=== PATIENT | female | born 1955 | race Caucasian/White ===

== ENCOUNTER 2019-07-05 09:16 | Observation (INO) ==
--- NOTE | 2019-07-05 10:17 | Emergency Department Note ---
Disposition Clinical Impression: Hyperglycemia, Prolonged QT interval syndrome, Dizziness, Vertigo Disposition: Admitted As Inpatient Condition: Fair Referrals: Chrissy Salas MD [Primary Care Provider] - Forms: ED Satisfaction Letter Time of Disposition: 12:43 Dizziness HPI - General Chief Complaint: ED Dizziness Stated Complaint: Dizziness,Fall,Back injury Time Seen by Provider: 07/05/19 09:27 Source: patient Limitations: no limitations - History of Present Illness HPI Narrative: Ms. Howard is a 64 y/o female with a past medical history of having hypertension who presented to the emergency room with 2 days of vertigo. Patient states that her dizziness began yesterday morning when she stood up in the morning. She had intermittent episodes unsure how long it is lasting for. She states that she has been stumbling and has fallen to the left. Patient states that she is not had any recent medication changes. She is not previously had symptoms like this before. Patient denies episodes of confusion, numbness and tingling into her extremities. She denies slurred speech. No previous history of having a stroke. She denies hearing loss, tenderness, recent illness, syncope, weakness, dysuria, and chest pain. - Related Data Home Medications Medication Instructions Recorded Confirmed Acetaminophen [Tylenol 8 Hour] 650 mg PO Q8H PRN 05/29/18 05/29/18 Aspirin [Lo-Dose Aspirin EC] 81 mg PO DAILY 05/29/18 05/29/18 Lisinopril [Zestril] 20 mg PO HS 05/29/18 05/29/18 Metoprolol Succinate [Toprol Xl] 50 mg PO HS 05/29/18 05/29/18 Naproxen [Naprosyn] 500 mg PO BID 05/29/18 05/29/18 Omeprazole [PriLOSEC] 40 mg PO HS 05/29/18 05/29/18 Potassium Gluconate [Potassium] 99 mg PO DAILY 05/29/18 05/29/18 Tizanidine HCl [Zanaflex] 2 mg PO HS 05/29/18 05/29/18 Previous Rx's Medication Instructions Recorded OxyCODONE/APAP 10/325 [Percocet 1 each PO Q6HR PRN 5 Days #18 05/29/18 10/325 MG] tablet Allergies Allergy/AdvReac Type Severity Reaction Status Date / Time menthol AdvReac Unknown Nausea Verified 05/29/18 08:04 meperidine [From Demerol] AdvReac Unknown Hypotension Verified 05/29/18 08:04 All systems ED: reviewed and negative except as stated. Review of Systems: As Per HPI Past Medical History - Past Medical History Source: patient Medical history: Reports: hypertension Surgical history: Reports: other Psychiatric history: Reports: no psych history - Social History Smoking Status: Former smoker Smokeless Tobacco Status: No Alcohol use: Reports: none Drug use: Reports: none Physical Exam Constitutional: Alert, in no acute distress HEENT: Normocephalic, atraumatic, TM normal, mucous membranes moist Heart: Normal, regular rate and rhythm, no murmurs Lungs: Clear to auscultation, no wheezes, rales, or rhonchi Abdomen: Soft, nondistended, nontender, bowel sounds present and normal, no guarding or rigidity. Extremities: No edema, No clubbing, radial pulse +2/4, capillary refill <2sec. Skin: Skin warm and dry, no lesions, no rashes, no jaundice Neurologic: Cranial nerves II through XII intact, strength 5/5 in all extremities, negative Romberg sign, no lower extremity drift, [id number] te st normal, See Hallpike maneuver positive bilaterally Psych: Cooperative with exam, good eye contact, cognitive function intact, speech clear, thought process logical, and goal directed - General Limitations: no limitations General appearance: alert, in no apparent distress Course Course Narrative: Due to patients advance age. risk factor of HTN, and falling to the left will obtain CT of head to rule out stroke. Patient is outside the window for TPA as is been over 24 hours and symptoms started. Patient has a negative Romberg sign, normal finger to nose test, and is not complaining of numbness or tingling in extremities. Not likely due to Meniere's disease as patient has no reported hearing loss. Clinical presentation most likely benign paroxysmal positional vertigo as she describes it as the room is spinning, episodic, witho ut hearing loss. EKG showed sinus rhythm with prolonged QTC. Troponin normal, CBC within normal limits, BMP did show elevated glucose. Patient most likely has diabetes based off of glucose. - Reevaluation(s) Reevaluation #1: CT head is negative for acute processes. Discussed case with hospitalist Dr. [place] for admission for dizziness with concerns for possible stroke and need for MRI, carotid ultrasound, and echo. Time: 12:40 Vital Signs Temperature 97.7 F 07/05/19 09:19 Pulse Rate 65 07/05/19 09:19 Respiratory Rate 16 07/05/19 09:19 Blood Pressure 154/74 07/05/19 09:19 O2 Sat by Pulse Oximetry 97 07/05/19 09:19 Temperature 97.7 F 07/05/19 09:19 Pulse Rate 53 07/05/19 12:56 Respiratory Rate 16 07/05/19 12:56 Blood Pressure 141/74 07/05/19 12:56 O2 Sat by Pulse Oximetry 98 07/05/19 12:56 Oxygen Delivery Oxygen Delivery Room Air Dizziness - Medical Records Medical records reviewed: Yes I reviewed the patient's medical records. - Lab Data Lab results reviewed: Yes I reviewed the patient's lab results. Result diagrams: 07/05/19 09:31 07/05/19 09:31 Lab Results 07/05/19 07/05/19 07/05/19 Range/Units 09:31 09:31 09:33 WBC 7.2 (4.3-11.1) K/mcL RBC 4.32 (3.82-4.97) M/mcL Hgb 13.9 (11.5-15.4) g/dL Hct 40.3 (35.3-44.9) % MCV 93.3 (83.0-100.0) fL MCH 32.2 (28.0-33.3) pg MCHC 34.5 (31.6-35.5) g/dL RDW 11.4 L (11.5-14.5) % Plt Count 315 (140-400) K/mcL MPV 11.0 (9.4-12.4) fL Sodium 139 (136-145) mEq/L Potassium 3.6 (3.5-5.1) mEq/L Chloride 100 (98-107) mEq/L Carbon Dioxide 26 (23-29) mEq/L BUN 17 (8-23) mg/dL Creatinine 0.89 (0.60-1.20) mg/dL Est GFR ( Amer) > 60 (> 60) Est GFR (Non-Af Amer) > 60 (> 60) BUN/Creatinine Ratio 19 (6-26) Glucose 272 H (70-105) mg/dL POC Glucose 285 H (70-99) mg/dL Calculated Osmolality 299 (280-300) Calcium 9.2 (8.6-10.3) mg/dL Troponin I < 0.03 (< 0.04) ng/mL Urine Color (Yellow) Urine Clarity (Clear) Urine pH (5.0-8.0) pH Units Ur Specific [place] (1.010-1.025) Urine Protein (Neg-Trace) mg/dL Urine Glucose (UA) (Normal) mg/dL Urine Ketones (Negative) mg/dL Urine Blood (Negative) Urine Nitrite (Negative) Urine Bilirubin (Negative) Urine Urobilinogen (Normal) mg/dL Ur Leukocyte Esterase (Negative) Ur Culture Indicated? (NO) 07/05/19 Range/Units 10:32 WBC (4.3-11.1) K/mcL RBC (3.82-4.97) M/mcL Hgb (11.5-15.4) g/dL Hct (35.3-44.9) % MCV (83.0-100.0) fL MCH (28.0-33.3) pg MCHC (31.6-35.5) g/dL RDW (11.5-14.5) % Plt Count (140-400) K/mcL MPV (9.4-12.4) fL Sodium (136-145) mEq/L Potassium (3.5-5.1) mEq/L Chloride (98-107) mEq/L Carbon Dioxide (23-29) mEq/L BUN (8-23) mg/dL Creatinine (0.60-1.20) mg/dL Est GFR ( Amer) (> 60) Est GFR (Non-Af Amer) (> 60) BUN/Creatinine Ratio (6-26) Glucose (70-105) mg/dL POC Glucose (70-99) mg/dL Calculated Osmolality (280-300) Calcium (8.6-10.3) mg/dL Troponin I (< 0.04) ng/mL Urine Color Yellow (Yellow) Urine Clarity Clear (Clear) Urine pH 5.5 (5.0-8.0) pH Units Ur Specific [place] 1.028 H (1.010-1.025) Urine Protein Negative (Neg-Trace) mg/dL Urine Glucose (UA) >=1000 H (Normal) mg/dL Urine Ketones Negative (Negative) mg/dL Urine Blood Negative (Negative) Urine Nitrite Negative (Negative) Urine Bilirubin Negative (Negative) Urine Urobilinogen Normal (Normal) mg/dL Ur Leukocyte Esterase Negative (Negative) Ur Culture Indicated? NO (NO) - Radiology Data Radiology results reviewed: Yes I reviewed the patient's radiology results. - EKG Data EKG attestation: Yes I reviewed and interpreted this EKG. EKG shows normal: sinus rhythm Rate: normal Rhythm: NSR [place]/QRS: normal QTc: prolonged NIH Stroke Scale - Level of Consciousness LOC: Alert - LOC Questions LOC Questions: Answers both correctly - LOC Commands LOC Commands: Performs both correctly - Best Gaze Best Gaze: Normal - Visual Visual: No visual loss - Facial Palsy Facial Palsy: Normal - Motor Arms Motor Arm-Left: No drift for 10 seconds Motor Arm-Right: No drift for 10 seconds - Motor Legs Motor Leg-Left: No drift for 5 seconds Motor Leg-Right: No drift for 5 seconds - Limb Ataxia Limb Ataxia: Normal, No Ataxia - Sensory Sensory: Normal - Best Language Best Language: No aphasia - Dysarthria Dysarthria: Normal - Extinction and Inattention Extinction and Inattention: Normal - NIHSS Total Score NIHSS Total Score: 0
[2019-07-05 10:37] LABS: Hematocrit 40.3 % (35.3-44.9); Hemoglobin 13.9 g/dL (11.5-15.4); Mean Corpuscular HGB Conc 34.5 g/dL (31.6-35.5); Mean Corpuscular Hemoglobin 32.2 pg (28.0-33.3); Mean Corpuscular Volume 93.3 fL (83.0-100.0); Platelet Count 315 K/mcL (140-400); Red Blood Count 4.32 M/mcL (3.82-4.97); Red Cell Distribution Width 11.4 % (11.5-14.5); White Blood Count 7.2 K/mcL (4.3-11.1)
--- NOTE | 2019-07-05 10:37 | Emergency Department Note ---
Disposition Clinical Impression: Hyperglycemia, Prolonged QT interval syndrome, Dizziness, Vertigo Disposition: Admitted As Inpatient Condition: Fair Time of Disposition: 16:03 General Adult HPI - General Chief complaint: ED Dizziness Stated complaint: Dizziness,Fall,Back injury Time Seen by Provider: 07/05/19 09:27 Source: patient Limitations: no limitations - History of Present Illness Pain Scale: 6 - Related Data Home Medications Medication Instructions Recorded Confirmed Acetaminophen [Tylenol 8 Hour] 650 mg PO Q8H PRN 05/29/18 05/29/18 Aspirin [Lo-Dose Aspirin EC] 81 mg PO DAILY 05/29/18 05/29/18 Lisinopril [Zestril] 20 mg PO HS 05/29/18 05/29/18 Metoprolol Succinate [Toprol Xl] 50 mg PO HS 05/29/18 05/29/18 Naproxen [Naprosyn] 500 mg PO BID 05/29/18 05/29/18 Omeprazole [PriLOSEC] 40 mg PO HS 05/29/18 07/05/19 Potassium Gluconate [Potassium] 99 mg PO DAILY 05/29/18 05/29/18 Tizanidine HCl [Zanaflex] 2 mg PO HS 05/29/18 07/05/19 Previous Rx's Medication Instructions Recorded OxyCODONE/APAP 10/325 [Percocet 1 each PO Q6HR PRN 5 Days #18 05/29/18 10/325 MG] tablet Allergies Allergy/AdvReac Type Severity Reaction Status Date / Time menthol AdvReac Unknown Nausea Verified 05/29/18 08:04 meperidine [From Demerol] AdvReac Unknown Hypotension Verified 05/29/18 08:04 Past Medical History - Past Medical History Medical history: Reports: hypertension Surgical history: Reports: other Psychiatric history: Reports: no psych history - Social History Smoking Status: Former smoker Smokeless Tobacco Status: No Alcohol use: Reports: none Drug use: Reports: none Physical Exam - General Limitations: no limitations General appearance: alert, in no apparent distress Course Vital Signs Temperature 97.7 F 07/05/19 09:19 Pulse Rate 65 07/05/19 09:19 Respiratory Rate 16 07/05/19 09:19 Blood Pressure 154/74 07/05/19 09:19 O2 Sat by Pulse Oximetry 97 07/05/19 09:19 Temperature 97.8 F 07/05/19 15:48 Pulse Rate 68 07/05/19 15:48 Respiratory Rate 18 07/05/19 15:48 Blood Pressure 96/63 07/05/19 15:48 O2 Sat by Pulse Oximetry 95 07/05/19 15:48 Oxygen Delivery Oxygen Delivery Room Air Medical Decision Making - Lab Data Result diagrams: 07/05/19 09:31 07/05/19 09:31 Lab Results 07/05/19 07/05/19 07/05/19 Range/Units 09:31 09:31 09:33 WBC 7.2 (4.3-11.1) K/mcL RBC 4.32 (3.82-4.97) M/mcL Hgb 13.9 (11.5-15.4) g/dL Hct 40.3 (35.3-44.9) % MCV 93.3 (83.0-100.0) fL MCH 32.2 (28.0-33.3) pg MCHC 34.5 (31.6-35.5) g/dL RDW 11.4 L (11.5-14.5) % Plt Count 315 (140-400) K/mcL MPV 11.0 (9.4-12.4) fL Sodium 139 (136-145) mEq/L Potassium 3.6 (3.5-5.1) mEq/L Chloride 100 (98-107) mEq/L Carbon Dioxide 26 (23-29) mEq/L BUN 17 (8-23) mg/dL Creatinine 0.89 (0.60-1.20) mg/dL Est GFR ( Amer) > 60 (> 60) Est GFR (Non-Af Amer) > 60 (> 60) BUN/Creatinine Ratio 19 (6-26) Glucose 272 H (70-105) mg/dL POC Glucose 285 H (70-99) mg/dL Calculated Osmolality 299 (280-300) Calcium 9.2 (8.6-10.3) mg/dL Troponin I < 0.03 (< 0.04) ng/mL Urine Color (Yellow) Urine Clarity (Clear) Urine pH (5.0-8.0) pH Units Ur Specific [place] (1.010-1.025) Urine Protein (Neg-Trace) mg/dL Urine Glucose (UA) (Normal) mg/dL Urine Ketones (Negative) mg/dL Urine Blood (Negative) Urine Nitrite (Negative) Urine Bilirubin (Negative) Urine Urobilinogen (Normal) mg/dL Ur Leukocyte Esterase (Negative) Ur Culture Indicated? (NO) 07/05/19 Range/Units 10:32 WBC (4.3-11.1) K/mcL RBC (3.82-4.97) M/mcL Hgb (11.5-15.4) g/dL Hct (35.3-44.9) % MCV (83.0-100.0) fL MCH (28.0-33.3) pg MCHC (31.6-35.5) g/dL RDW (11.5-14.5) % Plt Count (140-400) K/mcL MPV (9.4-12.4) fL Sodium (136-145) mEq/L Potassium (3.5-5.1) mEq/L Chloride (98-107) mEq/L Carbon Dioxide (23-29) mEq/L BUN (8-23) mg/dL Creatinine (0.60-1.20) mg/dL Est GFR ( Amer) (> 60) Est GFR (Non-Af Amer) (> 60) BUN/Creatinine Ratio (6-26) Glucose (70-105) mg/dL POC Glucose (70-99) mg/dL Calculated Osmolality (280-300) Calcium (8.6-10.3) mg/dL Troponin I (< 0.04) ng/mL Urine Color Yellow (Yellow) Urine Clarity Clear (Clear) Urine pH 5.5 (5.0-8.0) pH Units Ur Specific [place] 1.028 H (1.010-1.025) Urine Protein Negative (Neg-Trace) mg/dL Urine Glucose (UA) >=1000 H (Normal) mg/dL Urine Ketones Negative (Negative) mg/dL Urine Blood Negative (Negative) Urine Nitrite Negative (Negative) Urine Bilirubin Negative (Negative) Urine Urobilinogen Normal (Normal) mg/dL Ur Leukocyte Esterase Negative (Negative) Ur Culture Indicated? NO (NO) Attestation Statement - Attestation Attestation: I saw and evaluated the patient and and reviewed the resident's note/PA note/PARAFFIN PLANT SWEATER OPERATOR note, and I agree with the findings and plan. I personally supervised and was present for the guzmán/critical portions of any procedures. The medical decision- making was reviewed with the FORESTRY TECHNICIAN/PA/Advanced Practice Nurse/Resident Physician. I agree with the documented findings, disposition and treatment plan as described except to the extent set forth below. Presents with vertigo which started yesterday when she turned her head while getting out of bed and has been intermittent since that time however she also does have a sensation that she is falling to her left when she is trying to walk and does have a fuzzy feeling in her head as well as some occipital pain which began gradually and she is unsure of the exact onset. She denies any numbness or weakness of the extremities, slurred speech, facial droop, confusion. Patient will have initial evaluation or possible CVA with the feeling that she is falling to her left with the consideration of left-sided weakness however her neuro exam is normal with normal finger to nose and no arm or leg drift. Most likely diagnosis is BPPV but based on her age and her falling to the left history further evaluation for possible CVA or mass will be done 1037 I did review the EKG showing normal sinus rhythm with a rate of 65 and nonspecific T-wave change. There is a prolonged corrected QT which is 537 ms 1042 The patient now has a new diagnosis of undiagnosed diabetes and she also has hypertension and based on her age and the fact that she is falling to the left with the vertigo she will be admitted for further evaluation of possible CVA 1254 Patient is not a thrombolytic candidate due to prolonged duration of symptoms 1302
[2019-07-05 10:46] LABS: Bilirubin,Urine Negative (Negative); Blood,Urine Negative (Negative); Clarity,Urine Clear (Clear); Color,Urine Yellow (Yellow); Glucose,Urine (UA) >=1000 mg/dL (Normal); Ketones,Urine Negative (Negative); Leukocyte Esterase,Urine Negative (Negative); Nitrite,Urine Negative (Negative); PH,Urine 5.5 pH Units (5.0-8.0); Protein,Urine Negative (Neg-Trace); Specific Gravity,Urine 1.028 (1.010-1.025); Urobilinogen,Urine Normal (Normal)
[2019-07-05 10:50] LABS: BUN/Creatinine Ratio 19 (6-26); Blood Urea Nitrogen 17 mg/dL (8-23); Calcium 9.2 mg/dL (8.6-10.3); Carbon Dioxide 26 mEq/L (23-29); Chloride 100 mEq/L (98-107); Glucose 272 mg/dL (70-105); Osmolality,Calculated 299 (280-300); Potassium 3.6 mEq/L (3.5-5.1); Sodium 139 mEq/L (136-145); Troponin I < 0.03 ng/mL (< 0.04); eGFR For African Americans > 60 (> 60); eGFR For Non-African Americans > 60 (> 60)
[2019-07-05] MEDS ORDERED: Naloxone 0.4 MG/ML INJ IVP PRN (12:53)
--- NOTE | 2019-07-05 12:54 | Internal Med History&Physical ---
Date of Encounter: 07/05/19 Time of Encounter: 12:57 Internal Medicine - H&P: HPI History of present illness: Ms. Howard is a 64 year old female with history of hypertension presents for acute onset of dizziness with nausea. She is otherwise a good state of health and very active, usually doing exercise classes and staying active. In the past few days she has been having dizziness episodes even at rest. She became concerned this morning when she woke up with significant dizziness and stumbl ing. She was stumbling to the left side only. She denies any current focal weakness, loss of balance, headache, neck stiffness, blurry vision, vomiting, fevers. No recent trauma or episodes like this in the past. In the ED she had BMP and CBC that were unremarkable, troponin negative, EKG unremarkable. Her glucose was elevated in 270-280s. Past Med Surg Social Fam HX - Past Medical History Medical history: hypertension Additional medical history: rectal bleeding, dairrhea, colonoscopy, bladder vasquez rgery, partial hysterectomy, chronic back pain Psychiatric history: no psych history - Past Surgical History Surgical History: other Additional surgical history: partial hysterectomy, colonoscopy, bladder surgery, dilation and currettage - Social History Smoking Status: Former smoker Smokeless Tobacco Status: No Alcohol use: none Drug use: none Internal Medicine - H&P: Meds Acetaminophen [Tylenol 8 Hour] 650 mg PO Q8H PRN 05/29/18 [History] Aspirin [Lo-Dose Aspirin EC] 81 mg PO DAILY 05/29/18 [History] Lisinopril [Zestril] 20 mg PO HS 05/29/18 [History] Metoprolol Succinate [Toprol Xl] 50 mg PO HS 05/29/18 [History] Naproxen [Naprosyn] 500 mg PO BID 05/29/18 [History] Omeprazole [PriLOSEC] 40 mg PO HS 05/29/18 [History] OxyCODONE/APAP 10/325 [Percocet 10/325 MG] 1 each PO Q6HR PRN 5 Days #18 tablet 05/29/18 [Rx] Potassium Gluconate [Potassium] 99 mg PO DAILY 05/29/18 [History] Tizanidine HCl [Zanaflex] 2 mg PO HS 05/29/18 [History] Allergy/AdvReac Type Severity Reaction Status Date / Time menthol AdvReac Unknown Nausea Verified 05/29/18 08:04 meperidine [From Demerol] AdvReac Unknown Hypotension Verified 05/29/18 08:04 All Systems PM: A 10-system review of systems was performed and is negative for pertinent findings except as documented above in the HPI. - Constitutional Constitutional: no chills, no fever(s), no night sweats, no weakness - EENT Eyes: no change in vision, no diplopia, no discharge, no loss of vision, no pain, no photophobia Ears: no ear discharge, no ear pain, no tinnitus Nose, mouth and throat: no dysphagia, no nasal discharge, no neck pain, no sore throat - Cardiovascular Cardiovascular ROS IM: no chest pain, no diaphoresis, no dyspnea, no lightheadedness, no palpitations, no syncope - Respiratory Respiratory: no cough, no dyspnea, no wheezing, no excessive phlegm production - Gastrointestinal Gastrointestinal: no abdominal pain, no diarrhea, no hematemesis, no hematochezia, no melena, no nausea, no vomiting - Genitourinary Genitourinary: no change in urinary stream, no dysuria, no flank pain, no hematuria - Musculoskeletal Musculoskeletal ROS IM: no arthralgias, no atrophy, no muscle weakness, no neck pain, no numbness, no tingling - Integumentary Integumentary IM: no rash, no unusual bruising - Neurological Neurological ROS: disequilibrium, dizziness, vertigo, no abnormal hearing, no abnormal movements, no abnormal speech, no behavioral changes, no burning sensations, no confusion, no convulsions, no focal weakness, no numbness, no paresthesias, no tingling, no tremor(s) - Psychiatric Psychiatric: no anxiety, no auditory hallucinations, no behavioral changes - Endocrine Endocrine IM: no cold intolerance, no deeping of the voice - Hematologic/Lymphatic Hematologic/Lymphatic: no easy bruising - Constitutional Vitals: Temp Pulse Resp BP Pulse Ox 97.7 F 56 17 113/65 98 07/05/19 09:19 07/05/19 11:17 07/05/19 11:17 07/05/19 11:17 07/05/19 11:17 General appearance: Present: A&O X 3, no acute distress Exam: . - Head Head exam: Present: atraumatic, normocephalic - Eye Eye exam: Present: PERRL, conjuntiva pink, sclera anicteric Pupils: Present: PERRL - Neck Neck exam general surgery: Present: supple, trachea midline. Absent: lymphadenopathy - Respiratory Respiratory exam: Present: CTAB. Absent: accessory muscle use, rales, rhonchi, wheezes - Cardiovascular Cardiovascular exam: Present: RRR, +S1, +S2. Absent: diastolic murmur, gallop, rubs, systolic murmur - GI/Abdominal GI/Abdominal exam: Present: normal bowel sounds, soft, no peritoneal signs. Absent: distended, tenderness - Extremities Exam Extremities exam: Present: warm, radial pulses palpable and symmetrical. Absent: calf tenderness, cyanotic, pedal edema - Neurological Exam Neurological exam: Present: alert, CN II-XII intact, normal gait (examined with assistence due to dizziness), oriented X3, reflexes normal, no focal deficits, strengths equal and symetr throughout. Absent: altered, motor sensory deficit, pronater drift, facial droop, speech deficit - Skin Skin exam: Present: dry, intact Internal Med - H&P Results - Labs CBC & Chem 7: 07/05/19 09:31 07/05/19 09:31 Labs: Short CBC 07/05/19 Range/Units 09:31 WBC 7.2 (4.3-11.1) K/mcL Hgb 13.9 (11.5-15.4) g/dL Hct 40.3 (35.3-44.9) % Plt Count 315 (140-400) K/mcL BMP 07/05/19 09:31 Sodium 139 Potassium 3.6 Chloride 100 Carbon Dioxide 26 BUN 17 Creatinine 0.89 Glucose 272 H Calcium 9.2 Cardiac Enzymes 07/05/19 Range/Units 09:31 Troponin I < 0.03 (< 0.04) ng/mL Urine 07/05/19 Range/Units 10:32 Urine Color Yellow (Yellow) Urine Clarity Clear (Clear) Urine pH 5.5 (5.0-8.0) pH Units Ur Specific [place] 1.028 H (1.010-1.025) Urine Protein Negative (Neg-Trace) mg/dL Urine Glucose (UA) >=1000 H (Normal) mg/dL - Impressions ITS Impressions Head CT 07/05/19 10:24 IMPRESSION: No acute intracranial abnormality. D/ / Andrea Bhatia MD / Andrea Bhatia MD Interpreting Provider: Andrea Bhatia MD - Assessment and Plan (1) Dizziness Current Visit: Yes Status: Acute Assessment and plan: Most likely vertigo but concerning when patient is specifically stumbling to left side. She was outside of tpa window to have any stroke alert called. CT head was negative. She had hyperglycemia otherwise negative findings on labs. Neuro exam was normal. Will do CVA workup. - Echocardiogram - Carotid duplex - MRI head - Lipid panel. (2) Hypertension Current Visit: Yes Status: Acute Assessment and plan: Resume home medications. Qualifiers: Hypertension type: essential hypertension Qualified Code(s): I10 - Essential (primary) hypertension (3) Hyperglycemia Current Visit: Yes Status: Acute Assessment and plan: Likely has undiagnosed diabetes. Check A1C in AM. (4) Vertigo Current Visit: Yes Status: Acute Assessment and plan: Meclizine prn (5) DVT prophylaxis Current Visit: Yes Status: Acute Assessment and plan: Heparin SQ - Time Spent With Patient Total time spent is greater than 50% in coordination of care (as documented) at patient's floor/unit and/or counseling patient:
[2019-07-05] MEDS ORDERED: Ringers Solution, Lactated 1,000 ML IVC SCH (13:00)
[2019-07-05] MEDS ORDERED: tiZANidine 4 MG TABLET PO SCH (21:00)
[2019-07-06 08:18] LABS: Estimated Average Glucose 209 mg/dl
[2019-07-06 11:07] VITALS: BP 160/83
--- NOTE | 2019-07-06 14:10 | Electrocardiograph Report ---
[address] [address] Test Date: 2019-07-05 Pat Name: Andreina Howard Department: EXAM2 Room: 3B22 Gender: F Seasonal Customer Service Associate: : [id number] Requested By: Henrietta Whitfield Order Number: [id number] Reading MD: Gus Lizama Measurements Intervals [place] Rate: 65 P: 19 TN: 148 QRS: -9 QRSD: 112 T: 106 QT: 516 QTc: 537 Interpretive Statements Sinus rhythm Low voltage, precordial leads Prolonged QT interval Electronically Signed On 07-06-2019 14:08:48 EDT by Gus Lizama
--- NOTE | 2019-07-06 14:55 | Discharge Summary ---
- NOTES TO OUTPATIENT PROVIDER Notes to Outpatient Provider: f/u with PCP in one week. f/u with Vascular surgery Dr. Gomez in 2-4 weeks. Please start taking Aspirin 81mg PO Daily. Date of Encounter: 07/06/19 Time of Encounter: 14:48 - Discharge Diagnosis (1) Dizziness Priority: Primary Status: Acute (2) Vertigo Priority: Primary Status: Acute (3) Hyperglycemia Priority: Secondary Status: Chronic (4) DVT prophylaxis Priority: Secondary Status: Acute (5) Hypertension Priority: Secondary Status: Acute Qualifiers: Hypertension type: essential hypertension Qualified Code(s): I10 - Essential (primary) hypertension Hospital course: Ms. oHward is a 64 year old female with history of hypertension presented to ER for acute onset of dizziness with nausea. In the past few days she has been having dizziness episodes even at rest. She became concerned y/d when she woke up with significant dizziness and stumbling. She was stumbling to the left side only. She was admitted in the hospital and placed on environmental services manager. Her initial tr oponin came back as negative. Her 2 D Echo showed preserved LVEF and No valvular abnormalities. Her Carotid doppler showed Left internal carotid artery stenosis with 60-79% and Brain MRI did not show any acute infarction. At this point I recommended the pt to start taking ASA 81mg Daily and f/u with Vascular surgery an out pt. Her vertigo seems to be peripheral and positional. Recommended to use Meclizine 25mg PO TID as needed. She does have hyperglycemia due to new onset DM2. Her HbA1C 8.9. So started her on Glipizide XL 5 mg daily and Metformin 500mg PO BID. - Time Spent with Patient Total time spent providing and/or coordinating discharge services: - Discharge Medications Prescriptions: New Aspirin Enteric Coated [Aspirin EC] 81 mg PO DAILY #30 tablet. Meclizine HCl [Verticalm] 25 mg PO TID PRN #30 tablet PRN Reason: Vertigo Continued Tizanidine HCl [Zanaflex] 4 mg PO HS Omeprazole [PriLOSEC] 40 mg PO HS Metoprolol Succinate [Toprol Xl] 50 mg PO HS Lisinopril [Zestril] 20 mg PO HS Home Medications: Lisinopril [Zestril] 20 mg PO HS 05/29/18 [History] Metoprolol Succinate [Toprol Xl] 50 mg PO HS 05/29/18 [History] Omeprazole [PriLOSEC] 40 mg PO HS 05/29/18 [History] Tizanidine HCl [Zanaflex] 4 mg PO HS 05/29/18 [History] Aspirin Enteric Coated [Aspirin EC] 81 mg PO DAILY #30 tablet. 07/06/19 [Rx] Meclizine HCl [Verticalm] 25 mg PO TID PRN #30 tablet 07/06/19 [Rx] Allergies/Adverse Reactions: Allergy/AdvReac Type Severity Reaction Status Date / Time menthol AdvReac Unknown Nausea Verified 07/06/19 07:32 meperidine [From Demerol] AdvReac Unknown Hypotension Verified 07/06/19 07:32 Date of admission: 07/05/19 13:12 Primary care physician: Chrissy Salas - Constitutional Vitals: Temp Pulse Resp BP Pulse Ox 97.4 F L 77 15 160/83 96 07/06/19 11:06 07/06/19 11:06 07/06/19 11:06 07/06/19 11:06 07/06/19 11:06 General appearance: Present: A&O X 3, no acute distress Exam: Gen: Alert, awake, Oriented to time,place and person Chest: Diminished breath sounds B/L, No wheezing, No crackles, No rales Heart: S1S2+ RRR No murmurs Abd: Soft, NT, BS +, No organomegaly Ext: No edema, pulses are palpable, No calf tenderness Neuro : No acute focal neuro deficits noticed Skin: No rash. - Patient Status Disposition: Home, Self-Care Condition: Good Overall status at discharge: patient is back to baseline - Discharge Instructions Follow Up With: Chrissy Salas MD [Primary Care Provider] - (Appointment has been requested.) Bipin Gomez MD [Partnered Physician] - - Diet and Activity Activity: increase activity as tolerated Diet: low salt diet
== END 2019-07-06 16:17 | disposition home or self-care (01) ==
LOC: EMEROOARM 09:16 → 3BNU 09:16 → SUATTDRO 13:12 → 3BNU 13:41
PROVIDERS: ADMIT Student in an Organized Health Care Education/Training Program; ATTEND Family Medicine